=== PATIENT | male | born 1960 | race Caucasian/White ===

== ENCOUNTER 2017-05-20 22:18 | Emergency (ER) | payer BC, OTHER ==
--- NOTE | 2017-05-20 22:22 | EDM.PDOC ---
ED HPI GENERAL MEDICAL PROBLEM - General Chief Complaint: Chest Pain Stated Complaint: CHEST PAIN [id number] Time Seen by Provider: 05/20/17 22:22 Source of Information: Reports: Patient History Limitations: Reports: No Limitations - History of Present Illness INITIAL COMMENTS - FREE TEXT/NARRATIVE: chest pain x 40 minutes. Mid-Anterior Chest Pain Score (Numeric/FACES): 6 - Related Data Allergies Allergy/AdvReac Type Severity Reaction Status Date / Time No Known Allergies Allergy Verified 05/20/17 22:36 Home Meds: Home Meds Multivitamin [Daily Vitamin] 1 tab PO DAILY 10/30/14 [History] Omeprazole 1 tab PO DAILY 10/30/14 [History] Past Medical History HEENT History: Reports: Other (See Below) Other HEENT History: fractured nose Cardiovascular History: Reports: Syncope Gastrointestinal History: Reports: GERD, Hiatal Hernia Neurological History: Reports: Concussion, Head Trauma Oncologic (Cancer) History: Reports: Leukemia (CLL) Other Oncologic History: CLL not currently requiring treatment - Infectious Disease History Infectious Disease History: Reports: Chicken Pox, Measles - Past Surgical History GI Surgical History: Reports: Colonoscopy, EGD, Other (See Below) Musculoskeletal Surgical History: Reports: Carpal Tunnel, Nerve Relocation Social & Family History - Family History Cardiac: Reports: Hypertension, [place], Other (See Below) Other Cardiac Family History: heart transplant Neurological: Reports: TIA Endocrine/Metabolic: Reports: Diabetes, type II Oncologic: Reports: Breast (sister) - Tobacco Use Smoking Status *Q: Never Smoker Second Hand Smoke Exposure: No - Caffeine Use Caffeine Use: Reports: Coffee, Soda - Alcohol Use Days Per Week of Alcohol Use: 4 Number of Drinks Per Day: 3 Total Drinks Per Week: 12 - Recreational Drug Use Recreational Drug Use: No - Living Situation & Occupation Living situation: Reports: , with Family Occupation: Employed ED ROS GENERAL - Review of Systems Review Of Systems: See Below Constitutional: Denies: Fever, Chills HEENT: Reports: No Symptoms Respiratory: Denies: Shortness of Breath, Cough Cardiovascular: Reports: Chest Pain. Denies: Lightheadedness, Palpitations Endocrine: Reports: No Symptoms GI/Abdominal: Denies: Nausea, Vomiting : Reports: No Symptoms Musculoskeletal: Reports: Arm Pain (bilateral) Skin: Reports: No Symptoms Neurological: Reports: No Symptoms ED EXAM, GENERAL - Physical Exam Exam: See Below Exam Limited By: No Limitations General Appearance: Alert, Anxious, Mild Distress Eye Exam: Bilateral Eye: EOMI Ears: Normal External Exam Nose: Normal Inspection Throat/Mouth: Normal Inspection Head: Atraumatic, Normocephalic Neck: Normal Inspection, Full Range of Motion Respiratory/Chest: No Respiratory Distress, Lungs Clear Cardiovascular: Normal Peripheral Pulses, Regular Rate, Rhythm, No Edema, Other (ST elevation). No: No Murmur, JVD GI/Abdominal: Normal Bowel Sounds Back Exam: Normal Inspection Extremities: Normal Inspection Neurological: Alert, Oriented, Normal Cognition Psychiatric: Anxious Skin Exam: Warm, Dry, Intact, Normal Color EKG INTERPRETATION Rhythm: NSR ST-T: Elevated Course - Vital Signs Last Recorded V/S: Last Vital Signs Temp 96.7 F 05/20/17 22:24 Pulse 73 05/20/17 22:24 Resp 14 05/20/17 22:24 BP 115/73 05/20/17 22:24 Pulse Ox 99 05/20/17 22:50 - Orders/Labs/Meds Labs: Laboratory Tests 05/20/17 05/20/17 05/20/17 Range/Units 22:35 22:35 22:35 WBC 13.2 H (5.0-10.0) 10^3/uL RBC 4.51 L (4.6-6.2) 10^6/uL Hgb 13.4 L (14.0-18.0) g/dL Hct 40.6 (40.0-54.0) % MCV 90.0 (80-100) fL MCH 29.7 (27.0-34.0) pg MCHC 33.0 (33.0-35.0) g/dL Plt Count 133 L (150-450) 10^3/uL Neut % (Auto) 21.9 L (42.2-75.2) % Lymph % (Auto) 72.4 H (20.5-50.1) % [place] % (Auto) 4.4 (2-8) % Eos % (Auto) 1.1 (1.0-3.0) % Baso % (Auto) 0.5 (0.0-1.0) % Add Manual Diff Yes Neutrophils % (Manual) 25 L (42-75) % Band Neutrophils % 3 % Lymphocytes % (Manual) 65 H (20-50) % Atypical Lymphs % 0 % Monocytes % (Manual) 4 (2-8) % Eosinophils % (Manual) 2 (1-3) % Basophils % (Manual) 1 Bizarre Platelets Occasional Sodium 138 (135-145) mmol/L Potassium 3.5 L (3.6-5.0) mmol/L Chloride 104 (101-111) mmol/L Carbon Dioxide 23.0 (21.0-31.0) mmol/L Anion Gap 14.5 BUN 20 H (7-18) mg/dL Creatinine 0.9 (0.6-1.3) mg/dL Est Cr Clr Drug Dosing 93.50 mL/min Estimated GFR (MDRD) > 60 BUN/Creatinine Ratio 22.22 Glucose 129 H (74-105) mg/dL Calcium 8.7 (8.4-10.2) mg/dl Total Bilirubin 0.7 (0.2-1.0) mg/dL AST 19 (10-42) IU/L ALT 21 (10-60) IU/L Alkaline Phosphatase 62 (42-121) IU/L CK-MB (CK-2) 1.60 (0.4-4.7) ng/mL Troponin I 0.02 (0.00-0.02) ng/ml Total Protein 6.4 L (6.7-8.2) g/dl Albumin 4.1 (3.2-5.5) g/dl Globulin 2.3 Albumin/Globulin Ratio 1.78 Amylase 70 (28-100) U/L Lipase 21 L (22-51) U/L Meds: Medications Discontinued Medications Generic Name Dose Route Start Last Admin Trade Name Gurdeep PRN Reason Stop Dose Admin Aspirin 324 mg 05/20/17 22:30 05/20/17 22:41 Aspirin PO 05/20/17 22:31 Not Given ONETIME ONE Heparin Sodium (Porcine) 4,000 units 05/20/17 22:33 05/20/17 22:40 Heparin Sodium IVPUSH 05/20/17 22:34 4,000 units .BOLUS ONE Administration Protocol Heparin Sodium/Dextrose 25,000 units in 500 mls @ 20 mls/hr 05/20/17 22:45 Heparin 25,000 Units In D5w 500 Ml IV TITRATE WALLACE Protocol Morphine Sulfate 2 mg 05/20/17 22:41 05/20/17 22:52 Morphine IVPUSH 05/20/17 22:42 2 mg ONETIME ONE Administration Tenecteplase 50 mg 05/20/17 22:43 05/20/17 22:55 Tnkase IV 05/20/17 22:44 45 mg ONETIME ONE Administration Protocol - Re-Assessments/Exams Free Text/Narrative Re-Assessment/Exam: 05/20/17 23:40 Dr Oconnell [facility] accepting of patient in transfer. IV heparin infusing. Patient receiving IVF, TNK infused. Aspirin po [employer]GER. [facility] here. Patient HR and BP dropped. Patient symptomatic. Transient response to .5 Atropine, Dose repeated. HR holding 60-80, Brief few second period of tachy 110's. Stable, Guarded condition on tx. Departure - Departure Time of Disposition: 23:36 Disposition: DC/Tfer to Acute Hospital 02 Reason for Transfer *Q: Primary PCI Indicated Condition: Undetermined Clinical Impression: Bradycardia, Hx of chronic lymphocytic leukemia STEMI (ST elevation myocardial infarction) Qualifiers: Involved coronary artery: unspecified coronary artery Qualified Code(s): I21.3 - ST elevation (STEMI) myocardial infarction of unspecified site Referrals: Jimmie Tipton MD [Primary Care Provider] - Forms: ED Department Discharge
[2017-05-20] MEDS ORDERED: Aspirin 81 MG Tab.Chew PO ONE (22:30)
[2017-05-20] MEDS ORDERED: Heparin Sodium 5,000 Units/ML Vial IVPUSH ONE (22:33)
[2017-05-20 22:35] VITALS: BP 115/73
[2017-05-20] MEDS ORDERED: Morphine 2 MG/ML Syringe IVPUSH ONE (22:41)
[2017-05-20] MEDS ORDERED: Tenecteplase 50 MG Kit IV ONE (22:43)
[2017-05-20] MEDS ORDERED: Heparin Sodium/D5W 25,000 UNITS/500 ML BAG IV SCH (22:45)
[2017-05-20 23:03] LABS: ANION GAP 14.5; CHLORIDE,CL 104 mmol/L (101-111); SODIUM,NA 138 mmol/L (135-145)
--- NOTE | 2017-05-25 19:05 | EKG ---
05/20/2017 - [address] - TIME OF FIRST EK hours. I reviewed the EKG and agree with the machine's reading. TIME OF SECOND EK hours. I agree with the machine's reading. [facility] /[id number]
== END 2017-05-20 23:35 ==
LOC: DL.ED 22:18
DX: I21.3 ST elevation (STEMI) myocardial infarction of unspecified site (principal); K21.9 Gastro-esophageal reflux disease without esophagitis; Z79.899 Other long term (current) drug therapy
CPT/HCPCS: 36415; 71045; 80053; 82150; 82553; 83690; 84484; 85025; 93005; 96374; 96375; 99285; J1644; J2270; J3101